=== PATIENT | female | born 1945 | race Caucasian/White ===

== ENCOUNTER 2017-02-16 16:44 | Inpatient (IN) | payer MEDICARE, BC ==
--- NOTE | ~2017-02-16 | EKG ---
PATIENT: BILLY ALATORRE UNIT #: [id number] Ventricular Rate: 69 BPM Atrial Rate: 166 BPM QRS Duration: 84 ms Q-T Interval: 406 ms QTC Calculation(Bezet): 435 ms Calculated R Campbell: 30 degrees Calculated T Campbell: 7 degrees Diagnosis Line: Atrial fibrillation Diagnosis Line: Abnormal ECG Diagnosis Line: When compared with ECG of 16-FEB-2017 18:36, Diagnosis Line: (unconfirmed) Diagnosis Line: No significant change was found Diagnosis Line: Confirmed by ENOCH LAZAR MD ([id number]) on Diagnosis Line: 02/18/2017 5:25:37 PM INTERPRETING MD: VIKAS
--- NOTE | ~2017-02-16 | CT71 ---
[facility] A Service of [facility] & [facility] RADIOLOGY TEXT RESULTS PATIENT: BILLY ALATORRE LOCATION: [facility] 564-01 : 43 UNIT #: [id number] AGE: [address]: Franki Lauren MD SEX: F ORDER DR: [id number] [facility] [address] [facility]. [place], [place] [address] [id number] I MR#: [id number] Acc #: [id number] NAME: BILLY ALATORRE : 1945 SEX: F STUDY DATE/TIME: 02/16/2017 20:05 UNIT: [facility] ROOM: [facility] STUDY DESCRIPTION: CT Head Wo Contrast Attending Physician: Franki Lauren M.D. Ordering Physician: Esme Brar M.D. Primary Care Physician: Darrell Infante Jr., M.D. MEDICAL IMAGING REPORT This report is preliminary unless electronic signature is present EXAM Head CT without contrast, 02/16/2017 HISTORY Dizzy spells x 2 today with fall x [address] exam was performed with one or more of the following radiation dose reduction techniques: automatic exposure control, adjustment of mA and/or kV according to patient size, and iterative reconstruction. Axial images of the brain obtained without contrast show generalized atrophy. There are chronic ischemic changes seen around the ventricles. There is no evidence of mass effect, hemorrhage, or edema and no midline shift is seen. No acute changes are noted. IMPRESSION Atrophy with chronic ischemic changes. No acute changes are seen. Dictated by... Hero Stock M.D. THIS IS AN ELECTRONICALLY VERIFIED REPORT Hero Stock M.D. at 02/17/2017 2:13 PM JUAN RAMON/jose martin TD: 02/17/2017 07:34 JOB #: [id number] MEDICAL IMAGING REPORT Page 1 of 1 COPY
--- NOTE | ~2017-02-16 | HP ---
Unit #: [id number] #: [id number] Patient: BILLY ALATORRE [id number] [address] [place], [place] [address] [id number] I MR#: [id number] NAME: BILLY ALATORRE ROOM: 564 Age: 71 Sex: F Admission Date: 02/16/2017 : 1945 Attending Physician: Anila Elise M.D. Primary Care Physician: Darrell Infante Jr., M.D. HISTORY AND PHYSICAL CHIEF COMPLAINT Syncope, near syncope, new atrial fibrillation. HISTORY OF PRESENT ILLNESS This pleasant 71-year-old female with history of an arrhythmia, maintained on atenolol, hyperlipidemia, is admitted for new onset atrial fibrillation and syncope. The patient was placed on antibiotics two weeks ago for a urinary tract infection, which then became pyelonephritis. She had a near syncopal episode while ambulating to the bathroom a week ago. This morning she had two syncopal episodes while attempting to ambulate to the bathroom, and felt lightheaded afterward. She had no preceding symptoms before the syncopal episodes. She later developed some shortness of breath. She denies chest pain with the above or palpitations. She presented to the emergency department this evening in new atrial fibrillation, heart rate 90, while on atenolol. She is mildly orthostatic as well. In the emergency room she was bloused with two liters of saline and given 5 mg of Lortab. PAST MEDICAL HISTORY 1. The patient was seen in the past by Dr. Paulino for an arrhythmia, for which she required atenolol. Cardiac catheterization in 2006 revealed right mild nonobstructive coronary artery disease with normal left ventricular function. The patient also has a history of mitral regurgitation. 2. Chronic back pain. 3. Hypokalemia. 4. Frequent UTIs. 5. History of polyps in the colon in 2008 which were snared. Repeat colonoscopy in 2010 revealed no residual polyps. 6. Gastritis. EGD in 2010 revealed duodenitis, gastritis and esophagitis. 7. Remote history of some sort of blood clot requiring surgery on the right leg in 2005. 8. Bladder repair. 9. L4 laminectomy for lumbar stenosis. 10. Multiple left arm surgeries and the patient required resection. 11. Total abdominal hysterectomy. SOCIAL HISTORY The patient lives alone. She stopped smoking 15-20 years ago. She seldom drinks alcohol. Unit #: [id number] #: [id number] Patient: BILLY ALATORRE FAMILY HISTORY Coronary artery disease, diabetes mellitus and hypertension. ALLERGIES Reglan. HOME MEDICATIONS 1. Trazodone 100 mg at nighttime. 2. Zocor 20 mg at nighttime. 3. P.r.n. Phenergan. 4. Atenolol 50 mg daily. 5. Mobic. REVIEW OF SYSTEMS Notable for near syncope, syncope, recent pyelonephritis, arrhythmia, chronic back pain, hyperlipidemia, frequent UTIs, polyps, gastritis, the above mentioned surgeries, degenerative joint disease. All systems were reviewed and otherwise negative. PHYSICAL EXAMINATION GENERAL: Very pleasant 70-year-old moderately obese female who currently is in no acute distress. VITALS: Supine blood pressure 153/76, heart rate 96. Standing blood pressure 121/78, heart rate 115. Temperature 96.9, O2 saturations 100% on room air, respiratory rate 21. HEENT: Eyes, pupils equally round and reactive to light and accommodation. Extraocular muscles intact. Pharynx benign. NECK: Supple without adenopathy or thyromegaly. CHEST: Clear. HEART: Irregular, irregular. S1 and S2 without definite murmur. ABDOMEN: Bowel sounds are present. No hepatosplenomegaly, masses. EXTREMITIES: Without cyanosis, clubbing or edema. Pedal pulses are present. NEUROLOGIC: The patient is awake, alert and oriented. Cranial nerves are intact. Equal strength throughout. DIAGNOSTIC STUDIES IMAGING: Head CT atrophy and small vessel ischemic disease. Chest x-ray no acute disease. LABORATORY: On admission, hematocrit 38.8, normal white count, platelet count and coags. SMA12 is normal. BNP 138. Cardiac markers times two negative. CARDIOVASCULAR: EKG shows atrial fibrillation. Rate 90. Previous EKG showed sinus bradycardia in 2015. ASSESSMENT 1. Syncope and near syncope without preceding symptoms. Likely related to the patient's new diagnosis of atrial fibrillation. She may be having pauses. I am unsure. Will admit her to a telemetry bed to monitor her. Her rate currently is controlled on atenolol. She is mildly orthostatic and receiving fluids in the emergency room as well. 2. Recent pyelonephritis, treated with Cipro. 3. History of cardiac arrhythmia in the past. Seen by Dr. Paulino. This was not atrial fibrillation as the patient has never required anticoagulation. Cardiac catheterization in 2006 revealed minimal Unit #: [id number] #: [id number] Patient: VONALLMEN,BILLY disease with ejection fraction of 50%-55%. 4. Hyperlipidemia. 5. Degenerative joint disease. 6. Insomnia. PLAN 1. Heparin drip, echo, check thyroid function test, magnesium level. Will repeat cardiac enzymes in the morning. Continue atenolol and ask cardiology to see. 2. Obtain urinalysis. 3. IV fluids. Dictated by Anila Elise M.D. AML/gz TD: 02/17/2017 05:58 JOB #: [id number] CC: Darrell Infante Jr., M.D. Ponnattu K. Cherian, M.D. HISTORY AND PHYSICAL Page 1 of 1 X Anila Elise MD X HISTORY AND PHYSICAL
--- NOTE | ~2017-02-16 | EKG ---
PATIENT: BILLY ALATORRE UNIT #: [id number] Ventricular Rate: 91 BPM Atrial Rate: 500 BPM QRS Duration: 80 ms Q-T Interval: 358 ms QTC Calculation(Bezet): 440 ms Calculated R [place]: 5 degrees Diagnosis Line: Atrial fibrillation Diagnosis Line: Abnormal ECG Diagnosis Line: When compared with ECG of 23-NOV-2014 10:46, Diagnosis Line: Atrial fibrillation has replaced Sinus rhythm Diagnosis Line: Vent. rate has increased BY 42 BPM Diagnosis Line: T wave inversion now evident in Inferior leads Diagnosis Line: QT has lengthened Diagnosis Line: Confirmed by JAYESH GUTIERREZ MD ([id number]) on Diagnosis Line: 02/18/2017 3:17:06 PM INTERPRETING MD: BRENDA KRAMER
--- NOTE | ~2017-02-16 | CO ---
Unit #: [id number] #: [id number] Patient: BILLY ALATORRE [id number] [address] [place], [place] [address] [id number] MR#: [id number] NAME: BILLY ALATORRE ROOM: 564 Age: 71 Sex: F Admission Date: 02/16/2017 : 1945 Attending Physician: Franki Lauren M.D. Primary Care Physician: Darrell Infante Jr., M.D. Consultation Date: 02/17/2017 CONSULTATION REPORT REASON FOR CONSULTATION New atrial fibrillation and slow atrial fibrillation. HISTORY OF PRESENT ILLNESS This is a 71-year-old white female with history of having arrhythmias in the past and has been on atenolol, used to see Dr. Paulino back in 2006, and had a cardiac cath that showed mild nonobstructive CAD with normal LVEF of 50% to 55%. She has a history of frequent UTIs, a blood clot in the right leg requiring surgery back in 2005, hyperlipidemia, degenerative disk disease, and gastritis. The patient came in after she passed out. According to the patient, yesterday morning, she got up to the bathroom and had urinated and was standing at the sink, washing her hands, and felt very weak, lightheaded, and then passed out for briefly for a couple minutes she believes. She does live alone. There was no witness to these events. She says she was able to pull herself up and walked into her bedroom, which was not a very far distance and laid down and slept for a while. She says she got up later that day and was drinking sufficiently and she again went to the bathroom, and after she said she is again stood up and started feeling lightheaded and weak and she tried to make her to the bedroom and felt her knees got weak and had another syncopal episode. She said at this time she thinks she was out for several minutes. She was able again to pull herself up into the bed and she called 911 and EMS came and brought her to the hospital. She denies any chest pain, pain in her neck, bilateral jaws, shoulders, arms, or elbow. She denies any recent cough, fever, or chills. She denies any fever or chills. No shortness of breath. In the emergency room, the patient's blood pressure was found to be 135/73, heart rate 98, respirations 21, temperature 97.9, and O2 saturation was 100% on room air. Her chest x-ray did not show anything acute. CT of the head showed atrophy with chronic changes. Her EKG shows atrial fibrillation, which looking back on EKGs back in 2014, she was in sinus rhythm. Her EKG did not show anything acute. Initial cardiac enzymes are negative. Only changes in her medication were her doctors discontinued any NSAIDs, which were hurting her kidneys, and also she 2 weeks ago was treated by her primary care physician for UTI and was on an antibiotic for a few days. PAST MEDICAL HISTORY 1. History of arrhythmias, had been to Dr. Paulino in sometime back, has been on atenolol, but denies ever being told she had atrial fibrillation. 2. In 2006, she had a cardiac cath that showed right mild nonobstructive CAD with normal LVEF of 50% to 55%. Unit #: [id number] #: [id number] Patient: BILLY ALATORRE 3. History of hyperkalemia. 4. Frequent UTIs. 5. Gastritis. 6. History of blood clot in the right leg, reported surgery in 2005. 7. Reformed smoker. 8. Hyperlipidemia. 9. Degenerative joint disease. PAST SURGICAL HISTORY 1. Hysterectomy. 2. Bladder sling. 3. Bilateral breast cysts removed, they were benign. 4. Left arm was crushed and had head injury and she had repair. 5. Right leg DVT. 6. Breast reconstruction. 7. Right leg reconstruction. 8. Left rib removed surgery. 9. Arm surgery. 10. Bilateral feet neuromas removed. HOME MEDICATIONS 1. Phenergan 25 mg p.o. every 6 hours p.r.n. for nausea. 2. Zocor 20 mg p.o. at bedtime. 3. Tenormin 50 mg p.o. at bedtime. 4. Downey 7.5/325 one tablet p.o. every 4 hours p.r.n. for pain. ALLERGIES Reglan. SOCIAL HISTORY The patient lives in her home alone. She stopped smoking about 15-20 years ago, she has been a lifelong nondrinker. No illicit drug abuse. FAMILY HISTORY There is a coronary artery disease in her siblings, diabetes mellitus, and hypertension. REVIEW OF SYSTEMS See details in HPI. PHYSICAL EXAMINATION GENERAL: Ms. Alatorre is a 71-year-old white female, in no acute respiratory distress. She is awake, alert, and oriented. VITAL SIGNS: Blood pressure lying is 137/78 with a heart rate of 81, blood pressure sitting 114/71 with heart rate of 76, and blood pressure standing was 131/91 with heart rate of 75. She is afebrile. O2 saturations 100% on room air. NECK: Tracheal midline. No thyromegaly or lymphadenopathy. Normal carotid upstrokes. No jugular venous distention. HEART: S1 and S2. Irregular rate and rhythm. No clicks, murmurs, or rubs. LUNGS: Diminished, otherwise clear. ABDOMEN: Obese, soft, and nontender. Positive bowel sounds present. No hepatosplenomegaly. EXTREMITIES: Pedal pulses are palpable. No pedal edema. DIAGNOSTIC STUDIES LABORATORY RESULTS: Glucose 94, BUN 14, creatinine 1.0, EGFR is 55.9, Unit #: [id number] #: [id number] Patient: BILLY ALATORRE sodium 143, potassium 3.7, chloride 111, CO2 of 24, and calcium is 8.7. Magnesium is 1.8. Total protein 7.6, albumin 3.9, bilirubin total 0.9, AST 23, ALT 19, and alkaline phosphatase is 68. BNP is 138. Initial cardiac enzymes, CK-MB is less than 1.0, troponin less than 0.05, CK-MB 1.1, troponin less than 0.05, CK total 60, MB is 1.4, percentage of MB 2.3, and troponin less than 0.03. TSH is 1.87 and free T4 of 1.20. INR is 1.0. WBC is 7.3, hemoglobin 11.2, hematocrit 33.7, and platelets are 242. IMAGING STUDIES: 1. Chest x-ray shows no active pulmonary disease and lungs are clear. 2. CT of the head without contrast shows atrophy with chronic ischemic changes, nothing acute. 3. EKG shows atrial fibrillation with ventricular rate of 91 beats per minute, poor R-wave progression, telemetry showed 2.0 second pause and atrial fibrillation. IMPRESSION 1. Syncope, questionable etiology. 2. Atrial fibrillation, new onset/questionable duration. 3. Atrial fibrillation with slow ventricular response, 2.0 second pause. 4. Previous history of arrhythmias, was on atenolol, but Dr. Paulino has not seen for a few years. 5. In 2006, she had mild nonobstructive coronary artery disease with normal left ventricular ejection fraction of 50% to 55% back in 2006. 6. Frequent urinary tract infections. 7. Recent treatment for urinary tract infection and pyelonephritis. 8. Gastritis. 9. History of blood clot back in 2005. 10. Hyperlipidemia. 11. Degenerative joint disease. 12. Reformed smoker. PLAN 1. Cardiology consult to assist with evaluating and managing the patient's atrial fibrillation with slow ventricular response. The patient is on atenolol 50 mg p.o. daily. We will decrease the dose down to 25 daily to evaluate and monitor for any slowing of the heart. 2. The patient was started on heparin drip per protocol for anticoagulation. We will have to figure out some reasons, the patient may have been passing out, and in the meantime, we will check a cost of Xarelto to see if the patient can afford to take that anticoagulation after she is discharged. 3. Obtain a 2D echo to evaluate LV function and valves. 4. Check orthostatic vital signs to evaluate for any orthostasis. 5. Decrease the patient's atenolol down to 25 mg daily instead of 50 mg daily. 6. Obtain fasting lipid profile and TSH and evaluate. 7. On exam, there were no signs or symptoms of acute congestive heart failure or unstable angina. The patient may need ischemic heart disease workup since it has been sometime since she had a stress test. Further recommendations pending per Dr. Rayo. Thank you very much for allowing us to assist in the care. Dictated by... Sonu McleodPWilliamRJoe Unit #: [id number] #: [id number] Patient: BILLY ALATORRE SINTIA/hiwot TD: 02/18/2017 13:03 JOB #: [id number] CONSULTATION REPORT Page 1 of 1 X Gabrielle Wood APRN X CONSULTATION REPORT
--- NOTE | ~2017-02-16 | CR72 ---
[facility] A Service of [facility] & [facility] RADIOLOGY TEXT RESULTS PATIENT: BILLY ALATORRE LOCATION: [facility] 564-01 : 43 UNIT #: [id number] AGE: [address]: Franki Lauren MD SEX: F ORDER DR: [id number] [facility] [address]. [place], [place] [address] [id number] MR#: [id number] Acc #: [id number] NAME: BILLY ALATORRE : 1945 SEX: F STUDY DATE/TIME: 02/16/2017 19:01 UNIT: [facility] ROOM: [facility] STUDY DESCRIPTION: CR Chest Single View Portable Attending Physician: Franki Lauren M.D. Ordering Physician: Esme Brar M.D. Primary Care Physician: Darrell Infante Jr., M.D. MEDICAL IMAGING REPORT This report is preliminary unless electronic signature is present EXAM Portable chest, 02/16/2017 HISTORY Passed out two times today. Mild chest congestion for 1 week, shortness of breath and cough. FINDINGS The heart is top normal in size. Surgical clips are seen in the left paratracheal region. The lungs are clear except for some minimal discoid atelectasis at the left base. There are no pleural effusions. IMPRESSION No active pulmonary disease. Dictated by... Hero Stock M.D. THIS IS AN ELECTRONICALLY VERIFIED REPORT Hero Stock M.D. at 02/17/2017 2:10 PM JUAN RAMON/jose martin TD: 02/17/2017 06:08 JOB #: [id number] MEDICAL IMAGING REPORT Page 1 of 1 COPY
[~2017-02-16 16:44] MED LIST: ALLERCLEAR10 MG PO; AMITRYPTYLINE PO; ASPIRIN PO; ATENOLOL PO; BACTRIM DS TABL1 TA1 PO; CALCIUM + D 6001 TA1 PO; CATAFLAM50 MG PO; CIPRO PO; DESYREL50 M1 DOB; GABAPENTIN600 MG PO; HYDROCODON-ACE1 EAC7; HYDROCODON-ACE1 EAC7 PO; HYDROCODON-ACE1 EAC9 PO; LORTAB 10-3251 EACH PO; LYRICA PO; NEXIUM PO; PHENERGAN25 M1 PO; PHENERGAN25 MG PO; PYRIDIUM PO; STOOL SOFTENER100 M1 PO; TENORMIN50 MG PO; TYLENOL PM PO; VOLTAREN75 MG PO; ZETIA PO; ZOCOR PO; ZOCOR20 MG PO; ZYRTEC10 M2 PO
[2017-02-16 18:56] LABS: BASOPHIL# 0.1 X10e3 (0-0.3); BASOPHIL% 0.9 % (0-2.5); EOSINOPHIL# 0.1 X10e3 (0-0.7); EOSINOPHIL% 0.8 % (0.0-7.0); HEMATOCRIT 38.8 % (35.0-45.0); HEMOGLOBIN 12.9 gm/dL (12.0-16.0); LYMPHOCYTE# 1.9 X10e3 (1.0-3.5); LYMPHOCYTE% 21.4 % (17.0-45.0); MEAN CELL VOLUME 91.1 FL (83-96); MEAN CORPUSCULAR HEMOGLOBIN 30.3 PG (28-34); MEAN CORPUSCULAR HGB CONC 33.2 g/dL (30-36); MEAN PLATELET VOLUME 7.1 FL (6.5-11.5); MONOCYTE# 0.4 X10e3 (0-1.0); MONOCYTE% 4.4 % (3.0-12.0); NEUTROPHIL# 6.4 X10e3 (1.5-7.1); NEUTROPHIL% 72.5 % (40-75); PLATELET COUNT 306 X10e3 (140-420); RED BLOOD COUNT 4.26 X10e (3.90-5.30); RED CELL DISTRIBUTION WIDTH 13.4 % (11.0-15.5); WHITE BLOOD COUNT 8.8 X10e3 (4.0-10.5)
[2017-02-16 18:57] LABS: DIFF IND NO
[2017-02-16 19:10] LABS: PARTIAL THROMBOPLASTIN TIME 24.4 SECONDS (23.5-31.3); PROTHROMBIN TIME (PATIENT) 10.6 SECONDS (9.6-11.5)
[2017-02-16 19:15] LABS: POC - CKMB <1.0 ng/mL (0.0-7.9); POC - TROPONIN <0.05 ng/mL (<=0.05)
[2017-02-16 19:17] LABS: ALBUMIN SERUM 3.9 g/dL (3.5-5.0); BILIRUBIN, DIRECT 0.1 mg/dL (0.0-0.2); BILIRUBIN,INDIRECT 0.8 mg/dL (0.0-0.9); BILIRUBIN,TOTAL 0.9 mg/dL (0.2-2.0); CALCIUM SERUM 9.6 mg/dL (8.4-10.2); GLOM FILT RATE Estimated 55.9 mL/min (>60); POTASSIUM 4.3 mmol/L (3.5-5.1); PROTEIN TOTAL SERUM 7.6 g/dL (6.0-8.3)
[2017-02-16 21:00] LABS: POC - CKMB 1.1 ng/mL (0.0-7.9); POC - TROPONIN <0.05 ng/mL (<=0.05)
[2017-02-17 06:07] LABS: BASOPHIL# 0.1 X10e3 (0-0.3); BASOPHIL% 0.9 % (0-2.5); EOSINOPHIL# 0.1 X10e3 (0-0.7); EOSINOPHIL% 1.3 % (0.0-7.0); HEMATOCRIT 33.7 % (35.0-45.0); HEMOGLOBIN 11.2 gm/dL (12.0-16.0); LYMPHOCYTE# 1.9 X10e3 (1.0-3.5); LYMPHOCYTE% 26.8 % (17.0-45.0); MEAN CELL VOLUME 91.3 FL (83-96); MEAN CORPUSCULAR HEMOGLOBIN 30.3 PG (28-34); MEAN CORPUSCULAR HGB CONC 33.1 g/dL (30-36); MEAN PLATELET VOLUME 7.2 FL (6.5-11.5); MONOCYTE# 0.4 X10e3 (0-1.0); MONOCYTE% 5.4 % (3.0-12.0); NEUTROPHIL# 4.8 X10e3 (1.5-7.1); NEUTROPHIL% 65.6 % (40-75); PLATELET COUNT 242 X10e3 (140-420); RED BLOOD COUNT 3.69 X10e (3.90-5.30); RED CELL DISTRIBUTION WIDTH 13.8 % (11.0-15.5); WHITE BLOOD COUNT 7.3 X10e3 (4.0-10.5)
[2017-02-17 06:19] LABS: DIFF IND NO
[2017-02-17 06:44] LABS: CALCIUM SERUM 8.7 mg/dL (8.4-10.2); GLOM FILT RATE Estimated 55.9 mL/min (>60); MAGNESIUM 1.8 mg/dL (1.6-3.0); POTASSIUM 3.7 mmol/L (3.5-5.1)
[2017-02-17 07:34] LABS: THYROID STIMULATING HORMONE 1.87 uIU/ml (0.34-5.60)
[2017-02-17 07:40] LABS: FREE THYROXIN (T4) 1.2 ng/dL (0.58-1.64)
[2017-02-17 09:16] LABS: %MB 2.3 % (0.0-4.0); MB 1.4 ng/ml
[2017-02-17 22:49] LABS: URINE APPEARANCE CLEAR; URINE BILIRUBIN NEG (NEG); URINE BLOOD NEG (NEG); URINE COLOR YELLOW; URINE GLUCOSE NEG (NEG); URINE KETONE NEG (NEG); URINE LEUKOCYTE ESTERASE 2+ (NEG); URINE NITRATE NEG (NEG); URINE PH 6.5 (5-8); URINE PROTEIN NEG (NEG); URINE SPECIFIC GRAVITY 1.008 (1.003-1.035); URINE UROBILINOGEN 0.2 MG/DL (NEG)
[2017-02-17 22:51] LABS: CULTURE INDICATED? YES; URBCS1 AUWI 0-2 /[HPF] (0-2); URINE BACTERIA AUWI 4+ (NEGATIVE); URINE SQUAMOUS EPITHELIAL CELL NONE SEEN /[HPF]
[2017-02-18 06:50] LABS: HEMATOCRIT 33.7 % (35.0-45.0); MEAN CELL VOLUME 91.7 FL (83-96); MEAN CORPUSCULAR HEMOGLOBIN 30.1 PG (28-34); MEAN CORPUSCULAR HGB CONC 32.8 g/dL (30-36); MEAN PLATELET VOLUME 7.2 FL (6.5-11.5); RED BLOOD COUNT 3.67 X10e (3.90-5.30); RED CELL DISTRIBUTION WIDTH 13.9 % (11.0-15.5); WHITE BLOOD COUNT 6.5 X10e3 (4.0-10.5)
[2017-02-18 07:49] LABS: BUN/CREATININE RATIO 13.63; CALCIUM SERUM 8.8 mg/dL (8.4-10.2); CREATININE SERUM 1.1 mg/dL (0.6-1.4); GLOM FILT RATE Estimated 49.8 mL/min (>60); POTASSIUM 4.2 mmol/L (3.5-5.1)
[2017-02-19 05:34] LABS: HEMATOCRIT 31.1 % (35.0-45.0); HEMOGLOBIN 10.2 gm/dL (12.0-16.0); MEAN CELL VOLUME 91.6 FL (83-96); MEAN CORPUSCULAR HGB CONC 32.8 g/dL (30-36); MEAN PLATELET VOLUME 6.9 FL (6.5-11.5); RED BLOOD COUNT 3.4 X10e (3.90-5.30); RED CELL DISTRIBUTION WIDTH 13.7 % (11.0-15.5)
[2017-02-19 06:11] LABS: CALCIUM SERUM 8.7 mg/dL (8.4-10.2); GLOM FILT RATE Estimated 55.9 mL/min (>60); MAGNESIUM 1.9 mg/dL (1.6-3.0); POTASSIUM 4.1 mmol/L (3.5-5.1)
[2017-02-19] MEDS ORDERED: XARELTO20 MG PO (16:52)
[2017-02-19] MEDS ORDERED: NITROFURANTOIN100 M3 PO (16:53)
== END 2017-02-19 18:01 | disposition home or self-care (01) | DRG 309 ==
LOC: CED 16:44 → C5C 22:25 → CEDOF 22:25 → CED 22:37 → CEDOF 23:40 → CED 23:40 → C5C 02-17 00:20 → CEDOF 02-17 00:20 → C5C 02-17 00:20
PROVIDERS: Emergency Medicine; Internal Medicine; Internal Medicine Cardiovascular Disease; Nurse Practitioner
PROC: B246YZZ Ultrasonography of Right and Left Heart using Other Contrast (ICD-10-PCS; principal; 2017-02-17)
DX: I48.91 Unspecified atrial fibrillation (principal); N39.0 Urinary tract infection, site not specified; R55 Syncope and collapse; E78.5 Hyperlipidemia, unspecified; M19.90 Unspecified osteoarthritis, unspecified site; Z87.891 Personal history of nicotine dependence; Z90.710 Acquired absence of both cervix and uterus; Z82.49 Family history of ischemic heart disease and other diseases of the circulatory system; Z83.3 Family history of diabetes mellitus; G47.00 Insomnia, unspecified; Z87.440 Personal history of urinary (tract) infections
CPT/HCPCS: 70450; 71010; 80048; 80076; 81003; 82550; 82553; 83605; 83735; 83880; 84439; 84443; 84484; 85025; 85027; 85610; 85730; 87040; 87086; 87088; 87186; 93005; 93306; 96360; 99285; J1644; J2405; J3370; J3475